=== PATIENT | female | born 1995 | race Caucasian/White ===

== ENCOUNTER 2017-03-12 08:11 | Emergency (ER) | payer OTHER ==
[2017-03-12 08:23] VITALS: BP 126/63
--- NOTE | 2017-03-12 08:35 | EDM.PDOC ---
ED HPI EYE COMPLAINT - General Chief Complaint: Eye Problems Stated Complaint: PINK EYE Time Seen by Provider: 03/12/17 08:30 Source: Reports: Patient History Limitations: Reports: No limitations - History of Present Illness INITIAL COMMENTS - FREE TEXT/NARRATIVE: patient complains of bilateral eye itching and clear drainage. Past medical history consistent with seasonal allergies. Patient denies fever chills night sweats. Denies nasal congestion. Denies change in vision. No complaints of sore throat, headache, ear pain or pressure. Timing/Duration: Reports: Day(s): Location: both Quality: Reports: Other (itchy and clear discharge) Severity: mild Improves with: Reports: None Worsens with: Reports: None Associated Symptoms (Eye): Reports: itching - Related Data Allergies/ADRs: Allergies Sulfa (Sulfonamide Antibiotics) Allergy (Verified 03/12/17 08:21) Swelling Home Meds: Ambulatory Orders Medication Instructions Recorded Confirmed . [No Known Home Meds] 03/12/17 03/12/17 Past Medical History - Past Health History Medical/Surgical History: Denies Medical/Surgical History Social & Family History - Tobacco Use Smoking Status *Q: Never Smoker - Caffeine Use Caffeine Use: Reports: Coffee - Recreational Drug Use Recreational Drug Use: No ED ROS GENERAL - Review of Systems Review Of Systems: ROS reveals no pertinent complaints other than HPI. ED EXAM GENERAL W FULL EYE - Physical Exam Exam: See Below Exam Limited By: No limitations General Appearance: alert, WD/WN Eyelids: bilateral: normal appearance Conjunctiva & Sclera: bilateral: normal appearance Cornea Exam: bilateral: normal appearance Extraocular Movements: bilateral: intact Pupils: normal accommodation Pupillary Reaction: bilateral: brisk Comments: mild scleral redness to the right side of the right eye Ears: normal external exam, normal TMs Nose: normal inspection, normal mucosa Throat/Mouth: Normal inspection, Normal lips, Normal oropharynx Neck: normal inspection, supple, non-tender Course - Vital Signs Last Recorded V/S: Last Vital Signs Temp 98.1 F 03/12/17 08:22 Pulse 78 03/12/17 08:22 Resp 16 03/12/17 08:22 BP 126/63 03/12/17 08:22 Pulse Ox 100 03/12/17 08:22 Departure - Departure Time of Disposition: 08:38 Disposition: Home, Self-Care 01 Condition: good Clinical Impression: Conjunctivitis Qualifiers: Conjunctivitis type: acute Acute conjunctivitis type: atopic Laterality: bilateral Qualified Code(s): H10.13 - Acute atopic conjunctivitis, bilateral Forms: ED Department Discharge Additional Instructions: Take drops as directed. Use [id number] antihistamine as needed. Followup with regular provider if needed. Call or return if any problems questions or concerns
== END 2017-03-12 08:48 | disposition home or self-care (01) ==
LOC: DL.ED 08:11
DX: H10.13 Acute atopic conjunctivitis, bilateral (principal); Z88.2 Allergy status to sulfonamides
CPT/HCPCS: 99283